=== PATIENT | male | born 1980 | race Caucasian/White ===

== ENCOUNTER 2025-06-06 01:07 | Day surgery (SDC) | payer OTHER, SELFPAY ==
[2025-05-12 15:01] VITALS: BMI 34.3
[2025-06-06 09:36] VITALS: BP 148/84; PULSE 58; RESP 18; TEMP 36.3; O2SAT 97; BMI 33.7
[2025-06-06] MEDS: LACTATED RINGERS 1,000 ML 150 ML IV CONT (09:49)
--- NOTE | 2025-06-06 10:02 | WPDANESEPPF ---
Anes - Initial Pre Proc Eval Procedure: Operation Date: 06/06/25 11:00 Proposed Procedures p Colonoscopy - Sunday Blackwell MD Date/Time: 06/06/25 10:02 Surgeon: Sunday Blackwell MD Pre Op Diagnosis: Change in bowel habit, Other fecal abnormalities Patient Data Age: 44 Gender: M Height: 1.85 m Weight: 116.1 kg Last Vital Signs Temp 97.3 F L 06/06/25 09:36 Pulse 58 L 06/06/25 09:36 Resp 18 06/06/25 09:36 BP 148/84 H 06/06/25 09:36 Pulse Ox 97 06/06/25 09:36 O2 Del Method Room Air 06/06/25 09:36 Allergies Allergy/AdvReac Type Severity Reaction Status Date / Time No Known Allergies Allergy Mild Verified 06/06/25 09:36 Home Medications ?Medication ?Instructions ?Recorded ?Confirmed ?Type cetirizine 10 mg capsule (Zyrtec) 10 mg PO DAILY PRN allergy 02/06/23 05/12/25 Rx symptoms #1 cap Patient hx anesthesia problems: none Family hx anesthesia problems: none Results Review: All pre-operative results and documents have been reviewed as part of the pre-operative evaluation. [facility] Past Medical History Medical History MAYRA (obstructive sleep apnea) severe URI (upper respiratory infection) Mixed hyperlipidemia Family History Family History Sibling Family history of seizure disorder Social History Social History Smoking status: Former smoker Tobacco type: cigarettes Smoking end date: 12/01/14 Alcohol intake: current Drinks per week: 3 Substance use: current Substance use type: marijuana Last use: THC vape - daily Living arrangements: with family Spiritual care concerns: No Anes - Eval Final PreProcedure Day of Procedure 06/06/25 10:02 Patient weight: obese Heart: regular rate and rhythm Lungs: clear to auscultation Airway: Mallampati scale class II Neurological: alert and oriented Last oral intake: >/= 8 hours ASA classification: III Emergent: no Anesthetic plan: proceed Anesthesia type and monitoring: general GIVS and standard monitoring Results Review: All pre-operative results and documents have been reviewed as part of the pre-operative evaluation. Informed Consent: The patient's anesthetic plan and its attendant risks and benefits were discussed with the patient/family/POA. Questions were solicited and answers provided to the satisfaction of the patient/family/POA.
--- NOTE | 2025-06-06 10:11 | PM.IMHP ---
H&P: HPI History of Present Illness Date/Time: 06/06/25 10:11 Chief Complaint: Change in bowel habits Narrative: this patient has started experiencing fluctuation between normal stools and diarrhea, which he initially attributed to magnesium. Will discuss this with his primary MD it was deemed convenient to refer him for colonoscopy since he is already approaching 45 years old. Review of Systems Review of Systems: All systems reviewed & are unremarkable except as noted in HPI and below PMFSH Past Medical History Medical History MAYRA (obstructive sleep apnea) severe URI (upper respiratory infection) Mixed hyperlipidemia Family History Family History Sibling Family history of seizure disorder Social History Social History Smoking status: Former smoker Tobacco type: cigarettes Smoking end date: 12/01/14 Alcohol intake: current Drinks per week: 3 Substance use: current Substance use type: marijuana Last use: THC vape - daily Living arrangements: with family Spiritual care concerns: No Meds Home Medications and Allergies Home Medications ?Medication ?Instructions ?Recorded ?Confirmed ?Type cetirizine 10 mg capsule (Zyrtec) 10 mg PO DAILY PRN allergy 02/06/23 05/12/25 Rx symptoms #1 cap Allergies Allergy/AdvReac Type Severity Reaction Status Date / Time No Known Allergies Allergy Mild Verified 06/06/25 09:36 Vital Signs Vital Signs - 24 hr 06/06/25 09:36 Temperature 97.3 F L Pulse Rate 58 L Respiratory Rate 18 Blood Pressure 148/84 H Pulse Oximetry 97 Oxygen Delivery Room Air Exam Const: General: cooperative and healthy appearing Resp: Effort & Inspection: normal respiratory effort and able to speak in complete sentences Auscultation: clear to auscultation bilaterally Cardio: Rate: regular rate Rhythm: regular rhythm GI: Inspection: normal to inspection GI Palp: No No hepatosplenomegaly present Auscultation: normal bowel sounds Rectal Exam: deferred Skin: General skin exam: normal color Psych: Appearance: grossly normal Mental Status: mental status grossly normal Assessment and Plan Assessment and plan (1) Change in bowel habits: Code(s): R19.4 - Change in bowel habit Status: Acute Assessment and Plan: The patient is deemed a good candidate for the procedure. Consent signed. Will proceed.
[2025-06-06] MEDS: SIMETHICONE ORAL SUSPENSION 20 MG/0.3 ML 30 ML BOTTLE 0.6 ML IRRIGATION (10:27)
--- NOTE | 2025-06-06 10:44 | S_PTH ---
PATIENT: Marcelo Garnica LOC: [facility]#:[id number] AGE/SX: 44/M ROOM: RE06/06/[address]: Sunday Blackwell MD : 1980 BED: DIS: 06/06/2025 SPEC #: [id number] RECD: 06/06/25 13:20 STATUS: SANCHEZ REQ #: [id number] TEJ: 06/06/25 10:[address]: Sunday Blackwell DEPT: [facility] RECD BY: Gi Duran ENTERED: 06/06/25 13:22 SP TYPE: Surgical OTHR DR: Jesus Alberto Albright MD Tissues: A - Colon Polypectomy B - Colon Polypectomy C - Colon Polypectomy D - Rectal Polyp Procedures: Hematoxylin and Eosin Stain Gross and Microscopic Level 4
[2025-06-06 10:46] VITALS: BP 139/71; PULSE 60; RESP 20; O2SAT 97
[2025-06-06 10:56] VITALS: BP 148/83; PULSE 53; RESP 23; O2SAT 98
[2025-06-06 11:06] VITALS: BP 151/88; PULSE 53; RESP 18; O2SAT 100
== END 2025-06-06 11:10 | disposition home or self-care (01) ==
PROVIDERS: PCP Family Medicine; Referring Provider Physician Assistant; Visit Provider Internal Medicine Gastroenterology
PROC: 0DJD8ZZ Inspection of Lower Intestinal Tract, Via Natural or Artificial Opening Endoscopic (ICD-10-PCS; CPT 45378; principal; 2025-06-06 11:00)
DX: D12.2 Benign neoplasm of ascending colon (principal); D12.3 Benign neoplasm of transverse colon; D12.5 Benign neoplasm of sigmoid colon; K62.1 Rectal polyp; K64.8 Other hemorrhoids; E78.2 Mixed hyperlipidemia; G47.33 Obstructive sleep apnea (adult) (pediatric); F12.90 Cannabis use, unspecified, uncomplicated; E66.9 Obesity, unspecified; Z68.33 Body mass index [BMI] 33.0-33.9, adult; Z87.891 Personal history of nicotine dependence
CPT/HCPCS: 45385; 88305; J2003; J2704; J7120